=== PATIENT | male | born 1990 | race Caucasian/White ===

== ENCOUNTER 2016-11-30 15:09 | Emergency (ER) | payer SELFPAY ==
[~2016-11-30] VITALS: Ht 175.3 cm; Wt 67.8 kg
[~2016-11-30 15:09] MED LIST: ACET-1256 PO; EPP3/2 IM; IBUP-1050 PO; OXYC1TAB3 PO
[2016-11-30 15:16] VITALS: TEMP 36.9; Ht 175.3 cm; Wt 67.8 kg
[2016-11-30] MEDS ORDERED: KETOROLAC TROMETHAMINE 30 MG/ML VIAL IV STA (16:08)
--- NOTE | 2016-11-30 16:09 | EMERGENCY ROOM VISIT NOTE ---
History Report prepared by rA: Kin Fraser Under the Supervision of: Dr. Kin Urbano M.D. First contact with patient: 16:00 Chief Complaint: CHEST PAIN Stated Complaint: CHEST Nursing Triage Summary: Pt c/o right sided chest pain toward middle as well that began a month ago, over the last few days pt noticed swelling in middle of chest and pain is increasing. History of Present Illness The patient is a 26 year old male who presents to the Emergency Room with complaints of persistent right sided chest pain beginning about 1 month ago. He notes 1 month ago he was carrying a fireplace mantle and noticed right sided chest pain after this, which he describes as a pulled muscle. He reports his right pectoral area will swell with exertion compared to his left. He denies falling or any trauma at this time. The patient reports his pain is worsened with movements and when he takes deep breaths. He denies having any numbness or weakness. The patient adds he noticed a lump in the middle of chest a couple weeks ago. He states he went to [facility] where an EKG and X-ray were obtained and were noted to be normal. He reports they believed it was a pulled muscle. The patient denies taking regular medication, and denies any history of diabetes , heart disease, or lung disease. He admits to smoking, but denies alcohol or drug use. Source of History: patient Onset: about 1 month ago Position: chest (right) Quality: other ("pulled muscle") Timing: other (persistent) Modifying Factors (Worsening): breathing (deep), movement Associated Symptoms: No numbness, No weakness Review of Systems See HPI for pertinent positives & negatives. A total of 10 systems reviewed and were otherwise negative. Past Medical & Surgical Medical Problems: (1) Cervical strain (2) Concussion (3) Dental Disorder Nos (4) Dentalgia (5) Strain of thoracic spine (6) Tobacco Use Disorder Old medical records were reviewed. Nurse's notes were reviewed and I agree with. Family History No significant family history Social History Smoking Status: Current Every Day Smoker Alcohol Use: none Drug Use: none Marital Status: single Housing Status: lives with family Occupation Status: employed Current/Historical Medications Scheduled Acetaminophen (Tylenol), 1,000 MG PO PRN UD Scheduled PRN Epinephrine (Epipen), 0.3 MG IM UD PRN for ALLERGIC REACTION Oxycodone Immediate Rel Tab (Roxicodone Ir), 1 TAB PO Q6 PRN for Severe Pain Allergies Coded Allergies: BEE STING (Verified Allergy, Unknown, ., 07/21/16) Physical Exam Vital Signs Date Time Temp Pulse Resp B/P Pulse Ox O2 Delivery O2 Flow Rate FiO2 11/30/16 18:59 92 19 106/73 100 Room Air 11/30/16 18:25 77 19 114/76 99 Room Air 11/30/16 16:32 91 21 123/80 100 Room Air 11/30/16 16:29 102 11/30/16 15:19 95 Room Air 11/30/16 15:16 36.9 100 17 126/92 97 Room Air Physical Exam General: Non ill appearing slender young male; uncomfortable with movement. HEENT: Normal cephalic atraumatic. Pupils are equal round and reactive to light. Extraocular movements are intact. Oropharynx is pink with moist mucous membranes. No swelling of the mouth lips or tongue. Neck: Supple with a midline trachea. No meningeal signs or stiffness, no JVD or bruits. No Stridor. Chest: Clear to auscultation bilaterally. No wheezes or rhonchi. No increased work of breathing. Mild swelling and tenderness along the right sternal border. No redness or warmth; pain is worse with movement. Heart: regular rate and rhythm. Abdomen: Soft nontender, nondistended without rebound guarding or rigidity. Extremities: No cyanosis clubbing or edema. No calf tenderness or assymetry Spine/Back. Non tender to palpation. No CVA tenderness Skin: Good turgor without rashes. Neurologic exam: Cranial nerves two through 12 are intact. Motor and sensation are intact and symmetrical throughout. Medical Decision & Procedures ER Provider Diagnostic Interpretation: X-ray results as stated below per interpretation by me and the radiologist: SINGLE VIEW CHEST FINDINGS: An AP, portable, upright chest radiograph is compared to study dated 05/03/2013 and correlated with chest CT dated 07/30/2014. The cardiomediastinal silhouette is unremarkable. A calcified granuloma is noted in the left lung. The lungs and pleural spaces are otherwise clear. No pneumothorax is seen. The bony thorax is grossly intact. There is mild thoracic scoliosis. IMPRESSION: No active disease in the chest. Electronically signed by: Nhan Akhtar M.D. 11/30/2016 4:44 PM Dictated Date/Time: 11/30/2016 4:43 PM Laboratory Results 11/30/16 16:35 Red Blood Count 5.45, Mean Corpuscular Volume 91.4, Mean Corpuscular Hemoglobin 32.5, Mean Corpuscular Hemoglobin Concent 35.5, Mean Platelet Volume 11.3, Neutrophils (%) (Auto) 61.8, Lymphocytes (%) (Auto) 30.3, Monocytes (%) (Auto) 6.7, Eosinophils (%) (Auto) 0.5, Basophils (%) (Auto) 0.6, Neutrophils # (Auto) 5.10, Lymphocytes # (Auto) 2.50, Monocytes # (Auto) 0.55, Eosinophils # (Auto) 0.04, Basophils # (Auto) 0.05 11/30/16 16:35 Test 11/30/16 16:35 11/30/16 16:41 White Blood Count 8.25 K/uL (4.8-10.8) Red Blood Count 5.45 M/uL (4.7-6.1) Hemoglobin 17.7 g/dL (14.0-18.0) Hematocrit 49.8 % (42-52) Mean Corpuscular Volume 91.4 fL (80-100) Mean Corpuscular Hemoglobin 32.5 pg (25-34) Mean Corpuscular Hemoglobin Concent 35.5 g/dl (32-36) Platelet Count 251 K/uL (130-400) Mean Platelet Volume 11.3 fL (7.4-10.4) Neutrophils (%) (Auto) 61.8 % Lymphocytes (%) (Auto) 30.3 % Monocytes (%) (Auto) 6.7 % Eosinophils (%) (Auto) 0.5 % Basophils (%) (Auto) 0.6 % Neutrophils # (Auto) 5.10 K/uL (1.4-6.5) Lymphocytes # (Auto) 2.50 K/uL (1.2-3.4) Monocytes # (Auto) 0.55 K/uL (0.11-0.59) Eosinophils # (Auto) 0.04 K/uL (0-0.5) Basophils # (Auto) 0.05 K/uL (0-0.2) RDW Standard Deviation 44.9 fL (36.4-46.3) RDW Coefficient of Variation 13.4 % (11.5-14.5) Immature Granulocyte % (Auto) 0.1 % Immature Granulocyte # (Auto) 0.01 K/uL (0.00-0.02) Anion Gap 10.0 mmol/L (3-11) Est Creatinine Clear Calc Drug Dose 98.4 ml/min Estimated GFR () 107.6 Estimated GFR (Non- 92.8 BUN/Creatinine Ratio 9.6 (10-20) Calcium Level 9.7 mg/dl (8.5-10.1) Bedside Troponin I 0.010 ng/ml (0-0.045) Laboratory studies as stated above per my review. Medications Administered Medications (Trade) Dose Ordered Sig/Cornelius Route Start Time Stop Time Status Last Admin Dose Admin Ketorolac Tromethamine (Toradol Inj) 30 mg NOW STAT IV 11/30/16 16:08 11/30/16 16:09 DC 11/30/16 16:29 30 MG Morphine Sulfate (MoRPHine SULFATE INJ) 4 mg NOW STAT IV 11/30/16 17:07 11/30/16 17:08 DC 11/30/16 18:21 4 MG Ondansetron HCl (Zofran Inj) 4 mg NOW STAT IV 11/30/16 17:07 11/30/16 17:08 DC 11/30/16 18:23 4 MG ECG Indication: chest pain Rate (beats per minute): 96 Rhythm: normal sinus Findings: no acute ischemic change, other (normal intervals) Comparison ECG Date: no prior available ED Course 1602: Past medical records reviewed. The patient was evaluated in room B3B, and a complete history and physical examination were performed. 1608: Ordered Toradol Inj 30 mg IV. 1706: I reassessed the patient and he still has pain. 1707: Ordered Zofran Inj 4 mg IV, and Morphine Sulfate 4 mg IV. 1713: I spoke with Dr. Meadows about the patient's case and he said for the patient to follow up with him. 1830: Upon reevaluation, the patient is doing well. I discussed the results and treatment plan with the patient. He verbalized agreement of the treatment plan. The patient was discharged home. Medical Decision Differentials include acute coronary syndrome, pneumothorax, costochondritis, muscular strain or tear, and infection. This patient comes in as described above. he's had chest pain along the right sternal border for about a month. he noticed it after carrying something heavy. there is no direct trauma. It hurts worse with movement and who reports swelling there h.e does a small amount of swelling but no redness or warmth. EKG was obtained and does not show any ischemic changes. a chest x-ray blood work was obtained using given Toradol 30 iv. He was reassessed frequently. He was resting comfortably but did require further pain medications. He was given morphine 4 mg IV and Zofran 4 mg IV and appeared more comfortable. He has no acute electrolyte or metabolic abnormalities. He has nothing to suggest acute cardiac event. Chest x-ray does not show pneumonia pneumothorax or CHF. I think that he has a muscular strain . I think he may have actually torn his pectoralis muscles. I discuss case with Dr. Dong as the patient has been seen by [facility] before and and he said they can follow up with him in the office. The patient and use NSAIDs and initially was given OxyIR prescription needed for pain. He was warned that it could make him drowsy do not take for drinking, driving, working . avoid strenous activities and follow-up with Dr. Dong. Consults Time Called: 171 Consulting Physician: Dr. Meadows, Orthopedics Returned Call: [address] Meadows about the patient's case and he said for the patient to follow up with him. Impression Primary Impression: Right-sided chest pain Additional Impression: Pectoralis muscle strain Scribe Attestation The scribe's documentation has been prepared under my direction and personally reviewed by me in its entirety. I confirm that the note above accurately reflects all work, treatment, procedures, and medical decision making performed by me. Departure Information Dispostion Home / Self-Care Prescriptions Oxycodone Immediate Rel Tab (ROXICODONE IR) 5 Mg Tab 1 TAB PO Q6 Y for Severe Pain, #14 TAB Prov: Kin Urbano M.D. 11/30/16 Referrals Colt Mario DO (PCP) Patient Instructions My [facility] Additional Instructions Rest Use Ibuprofen 400 mg every 6 hours as needed. Take with food. For more severe pain, may use OxyIR 5 mg, one pill every 4-6 hours as needed OxyIR may make you drowsy do not take before drinking, driving, working Try to minimize using this arm Follow-up with Dr. Dong(orthopedist) that [facility] this week for recheck. Return if: Increasing pain, worsening symptoms, shortness breath, fever chills, any new problems or concerns. Problem Qualifiers
--- NOTE | 2016-11-30 16:45 | DIAGNOSTIC IMAGING REPORT ---
SINGLE VIEW CHEST CLINICAL HISTORY: Atypical chest pain. FINDINGS: An AP, portable, upright chest radiograph is compared to study dated 05/03/2013 and correlated with chest CT dated 07/30/2014. The cardiomediastinal silhouette is unremarkable. A calcified granuloma is noted in the left lung. The lungs and pleural spaces are otherwise clear. No pneumothorax is seen. The bony thorax is grossly intact. There is mild thoracic scoliosis. IMPRESSION: No active disease in the chest. Electronically signed by: Nhan Akhtar M.D. 11/30/2016 4:44 PM Dictated Date/Time: 11/30/2016 4:43 PM
[2016-11-30] MEDS ORDERED: ONDANSETRON INJ 2 MG/ML 2 ML VIAL IV STA (17:07)
[2016-11-30] MEDS ORDERED: MoRPHine SULFATE 4 MG/ML 1 ML CARP\\VIAL IV STA (17:07)
[2016-11-30 17:16] LABS: BASO % 0.6 %; BASO ABS # 0.05 K/uL (0-0.2); COMPLETE YES; EOS % 0.5 %; HEMATOCRIT 49.8 % (42-52); IG% 0.1 %; LYMPH % 30.3 %; MEAN CELL VOLUME 91.4 fL (80-100); MEAN CORPUSCULAR HEMOGLOBIN 32.5 pg (25-34); MEAN CORPUSCULAR HGB CONC 35.5 g/dl (32-36); MEAN PLATELET VOLUME 11.3 fL (7.4-10.4); MONO % 6.7 %; NEUT % 61.8 %; PLATELET COUNT 251 K/uL (130-400); RED BLOOD COUNT 5.45 M/uL (4.7-6.1); WHITE BLOOD COUNT 8.25 K/uL (4.8-10.8)
[2016-11-30 17:35] LABS: BUN/CREATININE RATIO 9.6 (10-20); CALCIUM 9.7 mg/dl (8.5-10.1); CREATININE 1.1 mg/dl (0.60-1.40); POTASSIUM 3.9 mmol/L (3.5-5.1)
[2016-11-30] MEDS ORDERED: OXYC1TAB3 PO (18:11)
[2016-11-30 18:59] VITALS: BP 106/73; PULSE 92; O2SAT 100
[2017-03-10] MEDS ORDERED: NAPR250T2 PO (18:33)
== END 2016-11-30 19:05 | disposition home or self-care (01) ==
LOC: C.EDB 15:12
DX: R07.9 Chest pain, unspecified (principal); S29.001A Unspecified injury of muscle and tendon of front wall of thorax, initial encounter; X58.XXXA Exposure to other specified factors, initial encounter; F17.200 Nicotine dependence, unspecified, uncomplicated

== ENCOUNTER 2017-03-10 17:44 | Emergency (ER) | payer SELFPAY ==
[~2017-03-10] VITALS: Ht 175.3 cm; Wt 62.8 kg
[~2017-03-10 17:44] MED LIST changes: -IBUP-1050 PO
[2017-03-10 17:57] VITALS: TEMP 36.6; Ht 175.3 cm; Wt 62.8 kg
[2017-03-10] MEDS ORDERED: KETOROLAC TROMETHAMINE 60 MG/2 ML VIAL IM STA (18:22)
[2017-03-10] MEDS ORDERED: CYCL10TA6 PO (18:33)
[2017-03-10] MEDS ORDERED: NAPR1TAB48 PO (18:33)
--- NOTE | 2017-03-10 18:34 | EMERGENCY ROOM VISIT NOTE ---
ED Visit Note First contact with patient: 18:05 CHIEF COMPLAINT: Low back pain HISTORY OF PRESENT ILLNESS: This 27-year-old male patient presents to the emergency department ambulatory complaining of pain in the low back which began earlier today. The patient states that he was helping to move a couch, and when he turned he developed a sharp pain in his back. The pain was gradual in onset, is now constant and worse with movement. The patient notes the pain as sharp and an 8/10. The patient has taken ibuprofen without relief of the pain. The patient denies any loss of control of their bowel or bladder functions. There has been no leg numbness or weakness, and no change in sensation. No nausea or vomiting or abdominal pain. No chest pain or shortness of breath. No dysuria or increased urinary frequency. The patient does report he has had back pain in the past and has been seen here for it. He believes that his mother has scoliosis but is unsure if he has it or not. REVIEW OF SYSTEMS: A review of systems was performed with positives and pertinent negatives listed in the history of present illness. All other systems were reviewed and are negative. ALLERGIES: No known drug allergies MEDICATIONS: No chronic medications PMH: No significant past medical history. SOCIAL HISTORY: The patient lives locally with family. He is a smoker and admits to occasional alcohol use. PHYSICAL EXAM: VITALS: Vitals are noted on the nurse's note and reviewed by myself. Vital signs stable. GENERAL: This is a 27-year-old male, in no acute distress, nondiaphoretic, well- developed well-nourished. SKIN: The skin was without rashes, erythema, edema, or bruising. Capillary refill less than 2 seconds. NECK: Supple without nuchal rigidity. No cervical spine tenderness. No paraspinous muscle tenderness. HEART: Regular rate and rhythm without murmurs gallops or rubs. LUNGS: Clear to auscultation bilaterally without wheezes, rales or rhonchi. ABDOMEN: Positive bowel sounds x 4. Normal tympanic percussion. Soft, nontender, without masses or organomegaly. Javed sign negative. MUSCULOSKELETAL: No muscle atrophy, erythema, or edema noted of the back. Diffuse tenderness over the entirety of the lower and mid back. There are no muscle spasms present. The patient has full ROM of the spine. Negative straight leg raise test. NEURO: Patient was alert and oriented to person place and time. Normal sensation to light and sharp touch. Deep tendon reflexes 2+ in the lower extremities. Dorsalis pedis pulse 2+ bilaterally. Strength 5/5 and equal in the bilateral lower extremities. EMERGENCY DEPARTMENT COURSE: The patient was evaluated as above. There was no trauma to the back. He complains of pain with light palpation over the entire back. He has been seen here multiple times for back pain. The patient was given 60 mg Toradol IM. He will be given a prescription for Naprosyn and Flexeril. He was instructed to follow-up with his primary care provider for his ongoing back pain. DIAGNOSIS: Lumbar strain Problem List Medical Problems: (1) Cervical strain Status: Resolved (2) Concussion Status: Chronic (3) Dentalgia Status: Chronic (4) Strain of thoracic spine Status: Resolved Current/Historical Medications No Active Prescriptions or Reported Meds Allergies Coded Allergies: BEE STING (Verified Allergy, Unknown, ., 03/10/17) Vital Signs Date Time Temp Pulse Resp B/P Pulse Ox O2 Delivery O2 Flow Rate FiO2 03/10/17 17:57 36.6 88 20 98 Room Air Departure Information Impression Primary Impression: Strain of lumbar region Dispostion Home / Self-Care Condition GOOD Prescriptions Cyclobenzaprine Hcl (FLEXERIL) 10 Mg Tab 10 MG PO TID for 3 Days, #9 TAB Prov: Ashley Moreno PA-C 03/10/17 Naproxen (Naprosyn) 250 Mg Tab 250 MG PO BID for 7 Days, #14 TAB Prov: Ashley Moreno PA-C 03/10/17 Referrals No Doctor, Assigned (PCP) Patient Instructions My [facility] Additional Instructions You have been treated in the Emergency Department for Back Pain. Naprosyn as prescribed. You have been prescribed Flexeril (cyclobenzaprine) 1-2 tabs orally, three times per day. Do NOT exceed 30 mg (6 tabs) per day. Take your first dose at bedtime as it can make you drowsy. Always take all medications as prescribed. For pain control, you can use the following [id number]-csplztf medicines (if >12 yo): - Regular strength (325mg/tab) Tylenol (acetaminophen) 2 tabs every 4-6 hours as needed. Do not exceed 12 tablets in a 24 hour period. Avoid taking more than 4 grams (4000 mg) of Tylenol per day. This includes any other sources of acetaminophen you may take on a regular basis. If this is an acute injury, ice can be applied to the area of pain for the first 3 days to help decrease pain and inflammation. After the first 3 days, a heating pad can be used over the area for continued soothing relief. You should schedule a follow-up appointment in 2-3 days with your Primary Care Provider for further evaluation and treatment of your back pain. Return to the Emergency Department if your current symptoms worsen despite treatment course outlined above, or if you develop any of the following symptoms : intractable pain despite aforementioned treatment course, loss of control of your bowel or bladder, numbness or tingling in your groin, or development of a fever. Problem Qualifiers Primary Impression: Strain of lumbar region Encounter type: initial encounter Qualified Codes: S39.012A - Strain of muscle, fascia and tendon of lower back, initial encounter
[2017-03-10 18:53] VITALS: BP 130/78; PULSE 68; O2SAT 99
== END 2017-03-10 18:54 | disposition home or self-care (01) ==
LOC: C.EDB 17:45 → C.EDD 18:54
DX: S39.012A Strain of muscle, fascia and tendon of lower back, initial encounter (principal); X50.0XXA Overexertion from strenuous movement or load, initial encounter; Y93.89 Activity, other specified; F17.210 Nicotine dependence, cigarettes, uncomplicated